=== PATIENT | male | born 1955 | race Caucasian/White ===

== ENCOUNTER 2017-02-20 09:52 | Outpatient (CLI) | payer BC ==
--- NOTE | 2017-02-20 13:51 | MRI ---
LUMBAR SPINE MRI WITH AND WITHOUT CONTRAST: HISTORY: Low back pain with radiation into the right leg. Previous surgery in 2015. COMPARISON: None. CORRELATION: Lumbar spine CT from 04/02/2006. TECHNIQUE: A lumbar spine MRI is performed with and without intravenous Gadolinium administration. Multisequen tial, multiplanar imaging is performed. FINDINGS: There is slightly heterogeneous marrow signal intensity in the lumbar vertebrae, suggesting senescen t change. Lumbar spine vertebral body height is maintained. There is no fracture. No significant STIR hyperintensity to suggest fracture or ligamentous injury. There is no pathologic enhancement of the vertebral bodies. There is no abnormal enhancement within the central spinal canal, including the cauda equina and con us medullaris. There is symmetric signal intensity of the psoas muscles. There is appropriate signal intensity of the visualized solid organs. The conus medullaris terminates at the mid L1 level. T11-T12: Disk desiccation with a right paracentral disk bulge. There is mild central canal stenosi s. Moderate right and left foraminal narrowing. T12-L1: Adequate disk hydration. No significant posterior disk abnormality. No significant centra l canal stenosis. The foramina are patent. L1-L2: Adequate disk hydration. No significant posterior disk abnormality. No significant central canal stenosis. The neural foramina are patent bilaterally. L2-L3: Adequate disk hydration. There is a generalized disk bulge, ligamentum flavum thickening, a nd facet hypertrophy, resulting in mild central canal stenosis. Mild right and mild to moderate lef t foraminal narrowing. L3-L4: Disk desiccation with mild loss of disk space height. Generalized disk bulge, ligamentum fl avum thickening, and facet hypertrophy result in moderate to severe central canal stenosis. Moderat e to severe bilateral foraminal narrowing. L4-L5: Disk desiccation without significant loss of disk space height. Minimal central and left sub articular disk bulge. Disk material abuts but does not obscure the traversing left L5 nerve root. The right subarticular zone is unremarkable. No significant central canal stenosis. Mild right and moderate left foraminal narrowing. L5-S1: Disk desiccation with mild loss of disk space height. There is a generalized disk bulge wit h a central and left subarticular component. There is no significant stenosis of the thecal sac. T he right subarticular zone is unremarkable. There is mass effect and complete ossification of the t raversing left S1 nerve root. Moderate bilateral foraminal narrowing. There appear to be post surgical ticket dispenser changer the right hemilaminectomy defect. There is no signific ant enhancing scar tissue at the operative site. IMPRESSION: 1. Post surgical changes involving the right lamina at L5-S1. 2. Degenerative disk disease at L5-S1, as above. 3. Moderate to severe central canal stenosis at L3-L4.. POS: [facility]
[2017-02-20] MEDS ORDERED: Gadobenate Dimeglumine 529 MG/1 ML (20ML VIAL) ONE (16:03)
== END 2017-02-20 09:53 | disposition home or self-care (01) ==
LOC: MRI 09:52
PROVIDERS: ATTEND Neurological Surgery
DX: M51.17 Intervertebral disc disorders with radiculopathy, lumbosacral region (principal); M48.06 Spinal stenosis, lumbar region; Z98.890 Other specified postprocedural states
CPT/HCPCS: 72158; A9579

== ENCOUNTER 2018-05-06 10:34 | Outpatient (CLI) | payer OTHER ==
--- NOTE | 2018-05-06 16:16 | RAD ---
PELVIS ONE VIEW: HISTORY: Strain of hamstring. COMPARISON: None. FINDINGS: There are enthesopathic changes of the iliac wings bilaterally, at the gluteus insertions. No acute fracture or malalignment. There is some bridging ossification at the superior aspect of the pubic symphysis. No osseous avulsion. Mild narrowing of both hip joint. IMPRESSION: Low grade degenerative changes. POS: [facility]
--- NOTE | 2018-05-06 16:19 | RAD ---
LEFT HIP TWO VIEWS: HISTORY: Strain of left hamstring. COMPARISON: None. FINDINGS: Along the medial margin of the lesser tuberosity is a subtle ossification, which could reflect a smal l ossified and retracted avulsion from the ischial tuberosity, which was retracted 4 cm. Mild enthes opathic change of the left iliac wing. IMPRESSION: Possibly a small osseous avulsion from the ischial tuberosity, at the expected location of the insert ion of the hamstring tendons, which would have a retraction of about 4 cm. MRI has greater sensitivi ty. Alternatively, this could be reflective of a focal area of heterotopic calcification and less li rissa a vascular calcification. POS: [facility]
--- NOTE | 2018-05-06 16:21 | RAD ---
RIGHT HAND TWO VIEWS: HISTORY: Hamstring string. COMPARISON: 05/04/2014 FINDINGS: The contour of the femoral head is maintained. Mild loss of joint space height, unchanged from the p revious examination. No fracture. Enthesopathic changes involving the right iliac wing are again de monstrated. IMPRESSION: Mild degenerative changes of the right hip. No fracture. POS: [facility]
== END 2018-05-06 10:35 | disposition home or self-care (01) ==
LOC: BICRAD 10:34
PROVIDERS: ATTEND Family Medicine
DX: S76.312A Strain of muscle, fascia and tendon of the posterior muscle group at thigh level, left thigh, initial encounter (principal); S76.311A Strain of muscle, fascia and tendon of the posterior muscle group at thigh level, right thigh, initial encounter; M16.0 Bilateral primary osteoarthritis of hip
CPT/HCPCS: 72170

== ENCOUNTER 2019-01-30 08:24 | Outpatient (CLI) | payer OTHER ==
--- NOTE | 2019-01-30 12:04 | MRI ---
MRI OF RIGHT WRIST: DATE: 01/30/2019. PROVIDED CLINICAL HISTORY: Wrist pain. FINDINGS: Evaluation is severe limited by patient motion. There is conspicuous fluid signal intensity about the contents of the carpal tunnel and flexor tendon s within the volar aspects of the hand. There is greater than physiologic fluid seen about multiple extensor tendons. There is greater than physiologic distal radial ulnar joint fluid. There greater than physiologic mid carpal and radiocarpal joint fluid. Normal-appearing TFC disk is not identified. Normal-appearing ulnar attachments of the TFC are not i dentified. Extensive radiocarpal joint space loss. The intrinsic wrist ligaments are not well evalu ated. Multiple carpal subcortical cyst-like change. Positive ulnar variance is noted along with conspicuou s osteophyte formation emanating from the dorsal aspects of the distal ulna adjacent to the ECU groov e. Diffuse patchy signal alteration within the regional intrinsic hand musculature. IMPRESSION: 1. Severely limited examination due to patient motion. 2. Extensive regional joint effusion, tenosynovitis, and patchy signal alteration within the intrins ic hand musculature. Correlate with concerns for an infectious or inflammatory process. 3. Extensive radiocarpal articular cartilage loss. Intact components triangular fibrocartilage comp magige are not identified. POS: [facility]
== END 2019-01-30 08:25 | disposition home or self-care (01) ==
LOC: SCSMRI 08:24
PROVIDERS: ATTEND Orthopaedic Surgery Hand Surgery
DX: S69.81XA Other specified injuries of right wrist, hand and finger(s), initial encounter (principal); S62.346G Nondisplaced fracture of base of fifth metacarpal bone, right hand, subsequent encounter for fracture with delayed healing; M25.431 Effusion, right wrist; M65.9 Synovitis and tenosynovitis, unspecified

== ENCOUNTER 2019-02-11 08:56 | Outpatient (CLI) | payer OTHER ==
--- NOTE | 2019-02-11 15:38 | MRI ---
MRI RIGHT HIP WITHOUT CONTRAST: HISTORY: Right hip pain since March. History of a hamstring strain that has not been getting better. A li fting injury in March. FINDINGS: There are arthritic changes of the lower lumbar spine. The SI joints are symmetric in appearance. T here is no evidence of any pelvic insufficiency type fractures. There is some mild tendinosis of the hamstring tendon origins. These are actually slightly more prominent on the left. I do not see any signs of any tear. Small field of view images of the right hip are obtained. These show some arthritic changes of the h ip joint with some edema changes in the superior acetabulum and some fraying of the anterior labrum. There is some mild tendinosis of the gluteus minimus and medius tendons. IMPRESSION: 1. Mild tendinosis of the hamstring tendon origins, slightly worse on the left. 2. Arthritic changes of both hips with degenerative appearing changes of both hip labrum. 3. Mild tendinosis of the gluteus minimus and medius tendon insertion on the right hip. POS: [facility]
== END 2019-02-11 08:57 | disposition home or self-care (01) ==
LOC: SCSMRI 08:56
PROVIDERS: ATTEND Family Medicine
DX: M25.551 Pain in right hip (principal); M76.891 Other specified enthesopathies of right lower limb, excluding foot; M16.0 Bilateral primary osteoarthritis of hip

== ENCOUNTER 2019-03-07 09:19 | Outpatient (CLI) | payer OTHER ==
[2019-03-07 11:49] LABS: #Eosinphils 0.1 thou/uL (0.0-0.7); #Lymphocytes 1.9 thou/uL (1.20-3.40); #Monocytes 0.8 thou/uL (0.11-0.59); #Neutrophils 4.9 thou/uL (1.40-6.50); %Basophils 0.6 % (0.0-1.0); %Eosinophils 1.4 % (0.0-10.0); %Lymphocytes 24.1 % (21.0-51.0); %Monocytes 10.3 % (0.0-10.0); %Neutrophils 63.6 % (42.0-75.0); Hemoglobin 14.3 g/dL (14.0-18.0); Mean Corpuscular HGB CONC 34.1 g/dL (32.0-36.0); Mean Corpuscular Volume 85.1 fL (78.0-98.0); Platelet Count 431 thou/uL (130-400); RBC Distribution Width 11.2 % (11.5-14.5); Red Blood Cell (RBC) Count 4.93 mill/uL (4.70-6.10); White Blood Cell (WBC) Count 7.7 thou/uL (4.8-10.8)
[2019-03-07 12:00] LABS: Bacteria/HPF None Seen HPF (None Seen); Bilirubin Negative (Negative); Blood, Urine Negative (Negative); Clarity Clear (Clear); Glucose, Urine (Dipstick) Normal (Negative); Leukocyte 25 Leu/uL (Negative); Nitrite Negative (Negative); Protein, Urine (Dipstick) Negative (Neg-Trace); RBC/HPF 0-3 HPF (0-3); Squamous Epithelial None Seen HPF (0-3); Urobilinogen Normal mg/dL (Less than 2); WBC/HPF 0-3 HPF (0-3)
[2019-03-07 12:11] LABS: Anion Gap 16 mmol/L (10-20); BUN (Urea Nitrogen) 11 mg/dL (8.4-25.7); Calc. Creatinine Clearance 0 mL/min (70-130); Calcium 9.9 mg/dL (7.8-10.44); Carbon Dioxide 23 mmol/L (23-31); Chloride 103 mmol/L (98-107); Estimated GFR-MDRD Greater than 90; Glucose 105 mg/dL (80-115); Potassium 4.7 mmol/L (3.5-5.1); Sodium 137 mmol/L (136-145)
--- NOTE | 2019-03-10 11:36 | EKG ---
Test Reason : Blood Pressure : / mmHG Vent. Rate : 059 BPM Atrial Rate : 059 BPM P-R Int : 180 ms QRS Dur : 090 ms QT Int : 400 ms P-R-T Axes : 007 017 070 degrees QTc Int : 396 ms Sinus bradycardia Otherwise normal ECG When compared with ECG of 28-APR-2015 10:14, No significant change was found Confirmed by Momo ALDRIDGE ([id number]) on 03/10/2019 11:36:11 AM Referred By: JOSE ALFREDO Confirmed By:Momo ALDRIDGE
== END 2019-03-07 09:20 | disposition home or self-care (01) ==
LOC: LABBT 09:19
PROVIDERS: ATTEND Orthopaedic Surgery Hand Surgery
DX: Z01.818 Encounter for other preprocedural examination (principal); S62.101G Fracture of unspecified carpal bone, right wrist, subsequent encounter for fracture with delayed healing; M25.831 Other specified joint disorders, right wrist
CPT/HCPCS: 80048; 81001; 85025; 93005; 93010

== ENCOUNTER 2019-03-11 09:17 | Day surgery (SDC) | payer OTHER ==
[2019-03-07 11:04] VITALS: BMI 27.8
[2019-03-11] MEDS ORDERED: Fentanyl 100 MCG/2 ML VIAL ONE ×3 (10:06→11:24)
[2019-03-11] MEDS ORDERED: Midazolam HCl 2 mg/2 ml Vial ONE ×2 (10:35→15:53)
[2019-03-11] MEDS ORDERED: Bupivacaine PF 0.5% 30 ML VIAL ONE (11:27)
[2019-03-11] MEDS ORDERED: EPINEPHrine 1 MG/ML AMP ONE (11:27)
[2019-03-11] MEDS ORDERED: Bacitracin Zinc Ointment 30 gm TUBE ONE (11:27)
[2019-03-11] MEDS ORDERED: Sodium Chloride 0.9% 10 ML ONE (11:27)
[2019-03-11] MEDS ORDERED: Betamet Acet/Betamet Na Ph 30 MG/5 ML VIAL ONE (12:49)
[2019-03-11] MEDS ORDERED: Bupivacaine HCl 0.5%/Epinephrine 1:200,000/PF 30 ml Vial ONE (14:08)
--- NOTE | 2019-03-11 15:29 | RAD ---
3 intraoperative images of the right wrist: 03/11/2019 COMPARISON: None HISTORY: Right wrist arthroscopy FINDINGS: Incompletely imaged postoperative hardware overlies the ulna. There is radiocarpal joint sp edgardo narrowing. Postsurgical instruments overlie the distal radioulnar joint on the first image. IMPRESSION: Intraoperative imaging as detailed above.
--- NOTE | 2019-03-11 15:34 | RAD ---
Radiograph right forearm 2 views: DATE: 03/11/2019 HISTORY: Ulnar osteotomy. COMPARISON: No recent forearm studies. FINDINGS: 2 small [id number] fluoroscopic spot images obtained with C-arm focusing on radial and ulnar diaph yses. There is a metallic plate with multiple screws screws fixating it to the ulnar diaphysis. Alignment is anatomical. IMPRESSION: Status post open reduction internal fixation of ulnar shaft.
[2019-03-11] MEDS ORDERED: Ketorolac Tromethamine 30 MG/ML VIAL ONE (16:50)
[2019-03-11] MEDS ORDERED: Lidocaine 1% PF 5 ML VIAL ONE (17:02)
[2019-03-11] MEDS ORDERED: PROPOFOL 200 MG/20 ML VIAL ONE (17:02)
--- NOTE | 2019-03-12 10:17 | OP ---
DATE OF PROCEDURE: 03/11/2019 PREOPERATIVE DIAGNOSES: 1. Distal radioulnar joint osteoarthritis. 2. Triangular fibrocartilage tear, degenerative, large. 3. Right wrist synovitis. POSTOPERATIVE DIAGNOSES: 1. Distal radioulnar joint osteoarthritis. 2. Triangular fibrocartilage tear, degenerative, large. 3. Right wrist synovitis. PROCEDURES PERFORMED: 1. Right distal radioulnar arthrotomy with osteophyte excision of the ulnar aspect. 2. Right wrist arthroscopic triangular fibrocartilage tear debridement, resection, and treatment. 3. Right wrist limited synovectomy. 4. Rayhack 2 mm ulnar shortening osteotomy, Rayhack plated technique, right distal 3rd mid shaft junction of ulna. 5. Tenosynovectomy wrist extensor, extensor carpi ulnaris. FINDINGS: 1. Severe osteoarthritis of distal radioulnar joint with osteophytes off the ulnar aspect as visualized and then corrected in job 2. 2. No lunate triquetrum osteoarthritis or ligament tear. 3. 2 mm ulnar positive right wrist with no true evidence of marked impingement except for synovitis. TOURNIQUET TIME: 90 minutes. ESTIMATED BLOOD LOSS: 40 mL. ANESTHESIA: General endotracheal anesthesia augmented with block. DESCRIPTION OF PROCEDURE: After successful general endotracheal anesthesia, the limb was prepped and draped. Time-out was done appropriately and appropriate right side was identified on the consent, and the procedures on the consent matched that of the chart and the surgery was begun. The sterile arm was then placed in a sterile finger trap in a towel. Standard 3, 4, 6U, and 6R portals were established and a panoramic view with 2.0 scope inside was accomplished. We visualized marked synovitis, so a synovectomy was performed with a 1.9 mm shaver alternating between working portals and visualization portals between all three listed above. Once we had done adequate synovectomy, visualized an approximately 4 mm complete degenerative tear of the triangular fibrocartilage resected in the central area. This gave a stable rim. There was only mild chondromalacia of the lunate grade 1 to 2 on its central lateral aspect as well. We then removed the arthroscope. We then brought the C-arm to the field and visualized where the osteophytes were in the distal radioulnar joint and that the one on the ulnar aspect revealed appropriate rotation. We were able to make an incision over the distal radioulnar joint. We carried this through skin and subcutaneous tissue until we could see the ulnar head rotating the ulnar head in appropriate pronation, we could visualize the osteophytes. We removed them with combination of small rongeur and a small osteotome. Now, they were not visualized and sign seen on radiographs, we felt we had performed enough resection. On the level of the joint and take pressure off the degenerative repair of the TFCC tear view of resection arthroscopically, we then made a standard incision under the touniquet junction of the distal third approximately three fingerbreadths proximal to the ulnar styloid. We carried through skin and subcutaneous tissue through the fascia and down to periosteum with sharp knife. We then subperiosteally prepared the bone with a sharp wood handle periosteal elevator from the set. Once this was done, we placed the Rayhack cut guide on the ulna, secured with a 399.99 Synthes clamp. Then, we used the standard drill and tap technique to place 2.7 screws x4 into the Rayhack guide, used wide spoonbill baby Hohmann retractors to protect the guide and saw complex from going deep to the bone and made the cut 2 mm wide through the Rayhack guide. We removed the Rayhack guide, placed screws back in the Rayhack tray in order 1 through 3,4 ad then removed the wafer. It was 2 mm. We then placed the plate back on 1st with screws one and two in the standard technique, then the co-adapter was placed along with screws, three and four, which was approximately 2 to 4 mm long as needed. We then easily reduced it to anatomic position with no visual fracture line seen clinically and minimal seen on radiographs. Last screw was placed in the two distal screws and were placed appropriately, removed the coaptation and there was no loss of fixation. Now, we performed the final procedure. We released the tourniquet and obtained hemostasis. We then closed the fascia over the ulnar plate with a running 0 Vicryl, subcutaneous closure with interrupted 3-0 Monocryl, and we placed Steri-Strips on the wound. We also then closed the joint with 2-0 Vicryl, we closed the retinaculum extensor digiti minimi with 2-0 Vicryl. Subcutaneous closure for the dorsal radioulnar joint incision was accomplished with 3-0 Monocryl in a running fashion and Steri-Strips were applied here as well. A bulky dressing was applied with bacitracin, 4x4s, and Kerlix, and the patient left the operating room in a sugar-tong splint with pink digits. No evidence of anesthetic or operative complication. Job ID: [id number]
== END 2019-03-11 19:10 | disposition home or self-care (01) ==
LOC: SDC 09:17
PROVIDERS: ATTEND Orthopaedic Surgery Hand Surgery
PROC: 0MB54ZZ Excision of Right Wrist Bursa and Ligament, Percutaneous Endoscopic Approach (ICD-10-PCS; principal; 2019-03-11)
PROC: 0RBN4ZZ Excision of Right Wrist Joint, Percutaneous Endoscopic Approach (ICD-10-PCS; principal; 2019-03-11)
PROC: 0PSK04Z Reposition Right Ulna with Internal Fixation Device, Open Approach (ICD-10-PCS; principal; 2019-03-11)
DX: M19.031 Primary osteoarthritis, right wrist (principal); M25.831 Other specified joint disorders, right wrist; M94.231 Chondromalacia, right wrist; M65.88 Other synovitis and tenosynovitis, other site; I10 Essential (primary) hypertension; F17.220 Nicotine dependence, chewing tobacco, uncomplicated; Z79.899 Other long term (current) drug therapy; Z88.6 Allergy status to analgesic agent; Z98.890 Other specified postprocedural states; X58.XXXA Exposure to other specified factors, initial encounter; Y99.0 Civilian activity done for income or pay
CPT/HCPCS: 76000; 88307; 89060; C1713; J0171; J0670; J0690; J0702; J1885; J2001; J2250; J2704; J3010; J3490; S0020

== ENCOUNTER 2020-11-12 05:37 | Day surgery (SDC) | payer OTHER ==
[2020-11-10 12:47] VITALS: BMI 28.8
[2020-11-12] MEDS ORDERED: Betamet Acet/Betamet Na Ph 30 MG/5 ML VIAL ONE (06:26)
[2020-11-12] MEDS ORDERED: Bacitracin Zinc Ointment 30 gm TUBE ONE (06:27)
[2020-11-12] MEDS ORDERED: Bupivacaine PF 0.5% 30 ML VIAL ONE (06:27)
[2020-11-12] MEDS ORDERED: Sodium Chloride 0.9% 10 ML ONE (06:27)
[2020-11-12] MEDS ORDERED: Fentanyl 100 MCG/2 ML VIAL ONE ×3 (06:59→11:25)
[2020-11-12] MEDS ORDERED: Lidocaine 1% PF 5 ML VIAL ONE (07:11)
[2020-11-12] MEDS ORDERED: PROPOFOL 200 MG/20 ML VIAL ONE (07:11)
[2020-11-12] MEDS ORDERED: Ketorolac Tromethamine 30 MG/ML VIAL ONE (07:11)
[2020-11-12] MEDS ORDERED: Ondansetron PF 4 MG/2 ML Vial ONE (07:11)
[2020-11-12] MEDS ORDERED: Dexamethasone 20 MG/5 ML VIAL ONE (07:11)
== END 2020-11-12 13:15 | disposition home or self-care (01) ==
LOC: SDC 05:37
PROVIDERS: ATTEND Orthopaedic Surgery Hand Surgery
PROC: 01N40ZZ Release Ulnar Nerve, Open Approach (ICD-10-PCS; principal; 2020-11-12)
PROC: 01N50ZZ Release Median Nerve, Open Approach (ICD-10-PCS; principal; 2020-11-12)
DX: G56.21 Lesion of ulnar nerve, right upper limb (principal); G56.01 Carpal tunnel syndrome, right upper limb; I10 Essential (primary) hypertension; F17.220 Nicotine dependence, chewing tobacco, uncomplicated; Z79.899 Other long term (current) drug therapy; Z88.6 Allergy status to analgesic agent
CPT/HCPCS: 93005; 93010; J0690; J0702; J1100; J1885; J2405; J2704; J3010; J3490; S0020